=== PATIENT | male | born 1950 | race Caucasian/White ===

== ENCOUNTER 2017-12-30 15:55 | Emergency (ER) | payer MEDICARE, BC ==
[~2017-12-30] VITALS: Ht 172.7 cm; Wt 85.8 kg
[2017-12-30] MEDS ORDERED: MUPIROCIN2 % EX (16:20)
[2017-12-30] MEDS ORDERED: CEPHALEXIN500 M1 PO (16:20)
[2017-12-30 16:21] VITALS: BP 118/76
[2017-12-30] MEDS ORDERED: METFORMIN HYD1000 MG PO (16:39)
== END 2017-12-30 16:35 | disposition home or self-care (01) ==
LOC: ED 15:55
DX: S60.512A Abrasion of left hand, initial encounter (principal); J44.9 Chronic obstructive pulmonary disease, unspecified; I10 Essential (primary) hypertension; I48.91 Unspecified atrial fibrillation; F43.10 Post-traumatic stress disorder, unspecified; W29.8XXA Contact with other powered hand tools and household machinery, initial encounter; Y93.89 Activity, other specified; Y92.009 Unspecified place in unspecified non-institutional (private) residence as the place of occurrence of the external cause

== ENCOUNTER 2020-01-09 | Emergency (ER) | payer OTHER, MEDICARE, BC ==
[~2020-01-09] MED LIST: CEPHALEXIN500 M1 PO; METFORMIN HYD1000 MG PO; MUPIROCIN2 % EX
[2020-01-09] MEDS ORDERED: AMOX/K CLAV875 M1 PO (13:40)
[2020-01-09] MEDS ORDERED: CODEINE/GUAIFEN1 SOL PO (13:40)
== END 2020-01-09 13:57 | disposition home or self-care (01) | DRG 153 ==
DX: J32.9 Chronic sinusitis, unspecified (principal); J40 Bronchitis, not specified as acute or chronic; J44.9 Chronic obstructive pulmonary disease, unspecified; I10 Essential (primary) hypertension; I48.91 Unspecified atrial fibrillation

== ENCOUNTER 2020-12-25 10:24 | Observation (INO) | payer OTHER, MEDICARE, BC ==
[~2020-12-25] VITALS: Ht 172.7 cm; Wt 88.0 kg
[~2020-12-25 10:24] MED LIST changes: +AMOX/K CLAV875 M1 PO; +CODEINE/GUAIFEN1 SOL PO
--- NOTE | 2020-12-25 10:25 | NUR ---
TO ROOM BOR BEDSIDE TRIAGE
--- NOTE | 2020-12-25 11:00 | NUR ---
Reassessment of patient completed. No distress noted.
[2020-12-25 11:07] LABS: HEMOGLOBIN 13.6 g/dl (14.0-18.0); IMMATURE GRANULOCYTES 0.5 % (0.0-5.0); MEAN CELL VOLUME 89.1 fL CALC (80.0-100.0); MEAN CORPUSCULAR HGB 29.6 pG CALC (26.0-32.0); MEAN CORPUSCULAR HGB CONC 33.2 g/dL CAL (32.0-36.0); NEUT# 3.21 thou/uL (1.82-7.42); RED BLOOD COUNT 4.6 mill/uL (4.70-6.10)
[2020-12-25 11:28] LABS: ALBUMIN 4.8 g/dL (3.2-5.0); ALKALINE PHOSPHATASE 121 u/l (38-126); AMYLASE 88 u/l (30-110); ANION GAP 18 (6-22 (CALC)); BILIRUBIN, TOTAL 0.6 mg/dL (0.0-1.4); BUN 15 mg/dL (8-23); BUN/CREATININE RATIO 17 (12-20 (CALC)); CARBON DIOXIDE 23 mmol/l (22-30); CHLORIDE 95 mmol/l (95-108); CREATININE 0.9 mg/dL (0.7-1.3); GFR > 60 ML/MIN (>=60 (CALC)); GFR FOR AFR.AMER. > 60 ML/MIN (>=60 (CALC)); LIPASE 506 u/l (23-300); MAGNESIUM 1.1 mg/dL (1.6-2.3); POTASSIUM 4.5 mmol/l (3.5-5.1); SGOT/AST 51 u/l (19-48); SODIUM 132 mmol/l (137-146); TOTAL PROTEIN 7.4 g/dL (6.3-8.2)
[2020-12-25 11:32] LABS: ACT PARTIAL THROMBO TIME 23.9 SECONDS (20.0-32.5); INTERNATIONAL NORMALIZED RATIO 1.1 RATIO (0.7-1.3); PROTHROMBIN TIME 11.3 SECONDS (9.0-12.5)
[2020-12-25 11:56] LABS: TSH, 3RD GENERATION 1.81 uIU/mL (0.47 - 4.68)
--- NOTE | 2020-12-25 12:00 | NUR ---
Reassessment of patient completed. No distress noted.
[2020-12-25 13:11] LABS: URINE BILIRUBIN - DIPSTICK NEGATIVE (NEGATIVE); URINE BLOOD DIPSTICK NEGATIVE (NEGATIVE); URINE COLOR YELLOW; URINE GLUCOSE - DIPSTICK >=1000 mg/dL (NEGATIVE); URINE KETONE NEGATIVE (NEGATIVE); URINE LEUK ESTERASE NEGATIVE (NEGATIVE); URINE NITRITE - DIPSTICK NEGATIVE (Negative); URINE PH 5.5 (4.5-8.0); URINE PROTEIN - DIPSTICK NEGATIVE (NEG-TRACE); URINE UROBILINOGEN - DIPSTICK 0.2 E.U./dL (0.2)
--- NOTE | 2020-12-25 13:11 | NUR ---
Reassessment of patient completed. No distress noted.
--- NOTE | 2020-12-25 14:47 | NUR ---
WILL CALL IN HIS MED LIST
--- NOTE | 2020-12-25 15:07 | NUR ---
WILL BE BRINGING BACK LIST OF MEDICATIONS THEY ARE UNABLE TO RECONCILE MEDICATIONS AT THIS TIME.
--- NOTE | 2020-12-25 15:13 | NUR ---
REPORT CALLED TO MED SURG
--- NOTE | 2020-12-25 15:14 | NUR ---
REPORT REC FROM Dave SOLIS RN
[2020-12-25 15:31] VITALS: BP 146/82
--- NOTE | 2020-12-25 15:48 | NUR ---
PT ARRIVED VIA STRETCHER ACCOMPANIED BY Dave SOLIS RN. A&O X3. ACCUCHECK OBTAINED, RESULTS 247. PT EDUCATED ON NEW ORDER FOR LEVEMIR AND SLIDING SCALE, PT AGREEABLE. PT DENIES ANY ABD PAIN, C/O OF CHRONIC BACK PAIN 04/06. #[address], HEALTHY AND PATENT. IVF @100 ML/HR TO BE INITIATED. PER PT TO BRING CPAP AND LIST OF HOME MEDICATIONS. 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 PT REPORTS CHRONIC AFIB. BM 12/25. ASSESSMENT COMPLETED. ORIENTED PT TO ROOM. DISCUSSED POC. CALL LIGHT LEFT WITHIN REACH.
--- NOTE | 2020-12-25 16:42 | NUR ---
PT GIVEN DOSE OF 25U OF LEVEMIR PER ORDERS. EDUCATION GIVEN ON LEVEMIR AND SLIDING SCALE. PT RECEPTIVE. CALL LIGHT LEFT WITHIN REACH.
[2020-12-25 21:33] VITALS: BP 144/83
--- NOTE | 2020-12-26 00:13 | NUR ---
PTS AGENCY NURSE/BERNARD CAME TO CONSULT ON HOW TO HAVE MEDICATIONS ENTERED FROM HOME. PT HAS A COMPLETE LIST OF HOME MEDICATIONS WRITTEN ON A PAPTER. ED HAD REPORTED THAT THEY WERE UNABLE TO OBTAIN MEDICATION INFORMATION. LIST PLACED ON CHART AND PHARMACY CONSULT PLACED.
[2020-12-26 01:00] VITALS: BP 121/70
[2020-12-26 03:05] VITALS: BP 127/76
[2020-12-26 06:14] LABS: MEAN CELL VOLUME 89.1 fL CALC (80.0-100.0); MEAN CORPUSCULAR HGB 29.7 pG CALC (26.0-32.0); MEAN CORPUSCULAR HGB CONC 33.3 g/dL CAL (32.0-36.0); RED BLOOD COUNT 3.87 mill/uL (4.70-6.10); RED CELL DISTRI WIDTH 13.2 % (11.5-15.5)
[2020-12-26 06:16] LABS: HEMATOCRIT 34.5 % (39.0-50.0); HEMOGLOBIN 11.5 g/dl (14.0-18.0)
[2020-12-26 06:36] LABS: ANION GAP 12 (6-22 (CALC)); BUN 12 mg/dL (8-23); BUN/CREATININE RATIO 14 (12-20 (CALC)); CHLORIDE 99 mmol/l (95-108); CREATININE 0.9 mg/dL (0.7-1.3); GFR > 60 ML/MIN (>=60 (CALC)); GFR FOR AFR.AMER. > 60 ML/MIN (>=60 (CALC)); MAGNESIUM 1.3 mg/dL (1.6-2.3); SODIUM 135 mmol/l (137-146)
[2020-12-26 06:40] LABS: CARBON DIOXIDE 28 mmol/l (22-30)
--- NOTE | 2020-12-26 07:22 | NUR ---
LATE ENTRY 0400 RESTING COMFORTABLY. CPAP IN USE, TOLERATING WELL. NO DISTRESS NOTED, CALL LIGHT IN REACH
--- NOTE | 2020-12-26 07:45 | NUR ---
LATE ENTRY 2100 PATIENT PROVIDED LIST OF HOME MEDICATIONS. COPY MADE AND PLACED ON FRONT OF CHART. PHARMACY CONSULTED.
[2020-12-26 08:00] VITALS: BP 126/82
--- NOTE | 2020-12-26 08:00 | NUR ---
PATIENT RESTING IN THE BED, IV INFUSING. AXOX3, DENIES PAIN. EDUCATED ON LAB RESULTS. REPOSITIOEND FOR COMOFRT, SIDE RAILS UP CALL LIGHT IN REACH, BED LOCKED IN LOW POSITION. ALL SAFTY MEASURES IN PLACE. WILL CONTINUE TO MONIOTR THE PATIENT.
[2020-12-26] MEDS ORDERED: TAMSULOSIN0.4 MG PO (09:57)
[2020-12-26] MEDS ORDERED: TOPROL XL50 MG PO (09:58)
[2020-12-26] MEDS ORDERED: METHOCARBAMOL500 MG PO (09:58)
[2020-12-26] MEDS ORDERED: [UNRECOGNIZED DRUG - OTHER] PO (09:59)
[2020-12-26] MEDS ORDERED: TRICOR145 MG PO (10:00)
[2020-12-26] MEDS ORDERED: CYMBALTA60 MG PO (10:00)
[2020-12-26] MEDS ORDERED: PRILOSEC20 MG/CAP PO (10:00)
[2020-12-26] MEDS ORDERED: VITAMIN D H1000 UNIT PO (10:01)
[2020-12-26] MEDS ORDERED: ZETIA10 MG PO (10:01)
[2020-12-26] MEDS ORDERED: METFORMIN HCL1000 MG PO (10:02)
[2020-12-26] MEDS ORDERED: FINASTERIDE5 MG PO (10:02)
[2020-12-26] MEDS ORDERED: SINGULAIR10 MG PO (10:02)
[2020-12-26] MEDS ORDERED: ISOSORB MONO30 MG PO (10:02)
[2020-12-26] MEDS ORDERED: KP FOLIC ACID1 MG PO (10:04)
[2020-12-26] MEDS ORDERED: ALOGLIPTIN12.5 MG PO (10:04)
[2020-12-26] MEDS ORDERED: MORPHINE SULFAT30 M2 PO (10:05)
[2020-12-26] MEDS ORDERED: MORPHINE SUL15 MG PO (10:07)
--- NOTE | 2020-12-26 10:32 | NUR ---
PT SHOWERED, RESTING IN THE CHAIR AT THIS TIME. PATIENT STATES "I FEEL SO MUCH BETTER". WILL CONTINUE TO MONITOR THE PATIENT.
[2020-12-26 11:00] VITALS: BP 156/79
[2020-12-26 11:52] VITALS: BP 126/82
[2020-12-26] MEDS ORDERED: LANTUS SOL100 UNIT/M SC (12:06)
--- NOTE | 2020-12-26 15:08 | NUR ---
Samantha. REMOVED FROM THE PATIENT TIP IN TACT. TELE REMOVED. PATIENT GIVEN EDUCATIONAL MATERIAL ON ADA DIET AND LOW SODIUM DIET.
--- NOTE | 2020-12-26 15:23 | NUR ---
DISCHARGE ORDERS GIVEN UNDERSTOOD AND SIGNED BY THE PATIENT. PATIENT IS GOING TO HIS OWN HOME WITH FAMILY.
== END 2020-12-26 15:27 | disposition home or self-care (01) | DRG 638 ==
LOC: ED 10:24 → MS2 14:07
PROVIDERS: Nurse Practitioner; ADMIT Internal Medicine; ATTEND Internal Medicine
DX: E11.65 Type 2 diabetes mellitus with hyperglycemia (principal); E87.2 Acidosis; R10.32 Left lower quadrant pain; E83.42 Hypomagnesemia; I10 Essential (primary) hypertension; J44.9 Chronic obstructive pulmonary disease, unspecified; I48.91 Unspecified atrial fibrillation; Z79.84 Long term (current) use of oral hypoglycemic drugs; Z95.0 Presence of cardiac pacemaker; Z20.822 Contact with and (suspected) exposure to COVID-19
CPT/HCPCS: J1650; J3475; Q9967